=== PATIENT | male | born 1985 | race Caucasian/White ===

== ENCOUNTER → 2016-11-18 | Outpatient (REF) ==
--- NOTE | 2016-11-18 14:23 | REP ---
LEFT KNEE SERIES: Five views. HISTORY: Degenerative disease. FINDINGS: Comparison left knee radiographs are from June 20, 2010. The left knee radiographs demonstrate normal bone joints and soft tissues. Joint spaces are preserved. No evidence of arthropathy. No bony destructive lesions seen. IMPRESSION: Negative left knee radiographs. Signed by Cedric Warren MD 11/18/2016 05:03 P
--- NOTE | 2016-11-18 14:24 | REP ---
CERVICAL SPINE SERIES: Three views. HISTORY: Degenerative disc disease. FINDINGS: Open mouth odontoid and AP views are unremarkable. Lateral view shows preserved vertebral body heights. There is straightening of the normal cervical lordosis. Alignment is otherwise normal. Disc spaces are maintained. Prevertebral soft tissues are not widened. IMPRESSION: Straightening, otherwise negative cervical spine radiographs. Signed by Cedric Warren MD 11/18/2016 05:03 P
== END ==
LOC: M SMT 11:56
PROVIDERS: ATTEND Internal Medicine
DX: M50.93 Cervical disc disorder, unspecified, cervicothoracic region (principal)

== ENCOUNTER → 2020-05-22 | Outpatient (CLI) | payer OTHER ==
--- NOTE | 2020-05-23 09:58 | ECWPNPC ---
PATIENT NAME: KINDRA CRUZ : 1985 GENDER: MALE VISIT DATE: 05/22/2020 DISCHARGE DATE: 05/22/20 1406 VISIT LOCKED DATE TIME: PHYSICIAN: EVAN BROWN RESOURCE: EVAN BROWN REASON FOR APPOINTMENT 1. NECK PAIN HISTORY OF PRESENT ILLNESS GENERAL: -35-YEAR-OLD MALE IN FOR NEW PATIENT CONSULT. PATIENT HAS COMPLAINTS OF NECK PAIN. PATIENT HAS BEEN ON MULTIPLE MEDICATIONS IN THE PAST ALL OF WHICH HE SAYS HAS NOT HELPED HIS PAIN. HE FURTHER STATES HE HAS HAD INJECTIONS IN THE PAST AND THAT HAS BEEN INEFFECTIVE WELL. HE RATES HIS PAIN CURRENTLY AT AN 8 OUT OF 10 AND DESCRIBES IT ACHING, BURNING, SHARP, STABBING, THROBBING, AND SHOOTING. FALL RISK SCREENING: SCREENING :ONE FALL WITHOUT INJURY IN THE PAST YEAR PAIN SCREENING: PATIENT HAS A COMPLAINT OF ACUTE OR CHRONIC PAIN :YES LOCATION OF PAIN:NECK, LEFT SHOULDER, RIGHT SHOULDER, BOTH SHOULDERS, UPPER BACK, LEFT HIP, RIGHT HIP, KNEES INTENSITY OF PAIN (SCALE OF 1 TO 10):8 WHAT DOES YOUR PAIN FEEL LIKE:ACHING, BURNING, SHARP, STABBING, THROBBING, SHOOTING DURATION:CONTINOUS, CONSTANT PAIN IS INCREASED BY:ACTIVITIES PAIN IS DECREASED BY:USE OF PAIN MEDICATIONS TREATMENT/MEDICATIONS USED TO MANAGE PAIN:NSAIDS LEVEL OF RELIEF FROM PAIN TREATMENTS IN THE PAST:50% PAIN HAS INTERFERED WITH THE FOLLOWING:BATHING/DRESSING, WALKING ABILITY, HOUSEWORK, SLEEP, TRANSPORTATION, TOILETING NURSING NOTE: - - -. PAIN CENTER INTAKE QUESTIONS: DO YOU HAVE A HISTORY OF MRSA? :NO DO YOU TAKE A BLOOD THINNERS? :NO DO YOU HAVE ANY BLEEDING DISORDERS? :NO ANY NEW NUMBNESS OR WEAKNESS IN YOUR LEGS OR ARMS? :YES BILAT ARMS AND LEGS ANY PACEMAKER,DEFIBRILLATOR, OR DORSAL COLUMN STIMULATOR? :NO DO YOU HAVE ANY RASHES OR OPEN SORES? :NO ARE YOU ALLERGIC TO IV DYE? :NO ARE YOU DIABETIC? :NO ANY NEW PROBLEMS WITH YOUR MEDICATIONS? :NO HAVE YOU RECEIVED A VACCINE IN THE PAST 30 DAYS? :NO DO YOU PLAN TO RECEIVE A VACCINE IN THE NEXT 21 DAYS? :YES IF SO WHAT VACCINE AND WHEN? FLU VACCINE DO YOU NEED ANY PRESCRIPTION? :NO DO YOU TAKE ANY IMMUNOSUPPRESSIVE MEDICATIONS? :NO CURRENT MEDICATIONS TAKING MAY USE MEDICAL MARIJUANA TAKING OMEPRAZOLE 20 MG CAPSULE DELAYED RELEASE 1 CAPSULE 30 MINUTES BEFORE MORNING MEAL ORALLY TWICE A DAY TAKING ALBUTEROL SULFATE HFA 108 (90 BASE) MCG/ACT AEROSOL SOLUTION 2 PUFFS NEEDED INHALATION EVERY 4 HRS FOR COUGH OR WHEEZE TAKING IBUPROFEN 800 MG TABLET 1 TABLET WITH FOOD OR MILK NEEDED ORALLY THREE TIMES A DAY TAKING MONTELUKAST SODIUM 10 MG TABLET 1 TABLET ORALLY ONCE A DAY TAKING CETIRIZINE HCL 10 MG TABLET 1 TABLET ORALLY ONCE A DAY TAKING GABAPENTIN 800 MG TABLET 1 TABLET ORALLY 4 TIMES A DAY TAKING MAY HAVE BACLOFEN TABLET 20 MG ORAL 4 TIMES A DAY TAKING MAY HAVE BOTOX MEDICATION LIST REVIEWED AND RECONCILED WITH THE PATIENT PAST MEDICAL HISTORY ALLERGIC RHINITIS/SEASONAL ALLERGIES ASTHMA/REACTIVE AIRWAY HYPERLIPIDEMIA IRRITIBLE BOWEL SYNDROME MIGRAINE 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 ANXIETY PTSD DEPRESSION GASTRITIS/GERD NECK AND BACK PAIN TOBACCO USE HYPERTENSION OBESITY CLASS 2 GALLSTONES CHRONIC HIP PAIN BILATERAL JOINT PAIN MUSCLE PAIN RIGHT SHOULDER PAIN SECONDARY TO ROTATOR CUFF INJURY ALLERGIES ZIPRASIDONE HCL: ORAL MANDIBULAR CERVICAL DISORDER PERTUSSIS VACCINES: UNKNOWN SURGICAL HISTORY NASAL CAUTERIZATION REPAIR LEFT KNEE TORN MENISCUS FAMILY HISTORY FATHER: UNKNOWN MOTHER: ALIVE SOCIAL HISTORY GENERAL: TOBACCO USE ARE YOU A:CURRENT SMOKER ARE YOU INTERESTED IN QUITTING?THINKING ABOUT QUITTING COUNSELED THE PATIENT ON SMOKING CESSATION, EDUCATION [id number]/21/2020 HOW MANY CIGARETTES A DAY DO YOU SMOKE?5 OR LESS LATEX QUESTIONNAIRE LATEX ALLERGY : HAVE YOU EVER DEVELOPED ANY TYPE OF REACTION AFTER HANDLING LATEX PRODUCTS SUCH RUBBER GLOVES, CONDOMS, DIAPHRAGMS, BALLOONS, SOCKS, OR UNDERWEAR?NO LATEX ALLERGY : HAVE YOU EVER DEVELOPED ANY TYPE OF REACTION DURING OR AFTER DENTAL APPOINTMENT, VAGINAL/RECTAL EXAMINATION, SURGICAL PROCEDURE, OR ANY OTHER EXPOSURE?NO LATEX RISK : HAVE YOU EVER HAD ANY DIFFICULTY BREATHING OR HIVES AFTER EATING OR HANDLING ANY FRUITS, OR VEGETABLES; SUCH KIWI, BANANAS, STONE FRUITS, OR CHESTNUTSNO LATEX RISK : DO YOU HAVE A PREVIOUS PERSONAL HISTORY OF MORE THAN NINE SURGERIES, SPINA BIFIDA, OR REPEATED CATHERIZATIONS? NO LATEX RISK : ARE YOU FREQUENTLY EXPOSED TO LATEX PRODUCTS IN YOUR OCCUPATION?NO DATE ASKED : 05/22/2020 ALCOHOL SCREENING DID YOU HAVE A DRINK CONTAINING ALCOHOL IN THE PAST YEAR?NO POINTS0 INTERPRETATIONNEGATIVE LANGUAGE LANGUAGES SPOKEN:AF[place] MARITAL STATUS: SINGLE. PAIN CLINIC PFS, CLERGY, PUBLIC HEALTH REFERRALS HAS THE PATIENT BEEN EDUCATED REGARDING HIS/HER PLAN OF CARE?YES HAS THE PATIENT BEEN EDUCATED REGARDING PAIN, THE RISK FOR PAIN, THE IMPORTANCE OF EFFECTIVE PAIN MANAGEMENT, AND THE PAIN ASSESSMENT PROCESS?YES ADVANCE DIRECTIVE ADVANCE DIRECTIVE DISCUSSED WITH PATIENT:YES DECLINED, DECLINED PAPERWORK HOSPITALIZATION/MAJOR DIAGNOSTIC PROCEDURE DENIES PAST HOSPITALIZATION REVIEW OF SYSTEMS CONSTITUTIONAL: ANY RECENT FEVER NO . CHILLS NO . WEIGHT CHANGE OF UNKNOWN REASONS NO . GASTROENTEROLOGY: NEW UNEXPLAINABLE CHANGES IN BOWEL CONTROL NO . CONSTIPATION NO . GENITOURINARY: ANY NEW CHANGE IN BLADDER CONTROL? NO . NEUROLOGY: NEW ONSET DIZZINESS OR NEUROLOGICAL CHANGES NOT MENTIONED NO . NEW NUMBNESS OR PAIN PATTERNS NOT MENTIONED AND PERTINENT TO TODAY'S VISIT NO . CARDIOLOGY: NEW CHEST PRESSURE NO . NEW CHEST PAIN NO . RESPIRATORY: UNEXPLAINABLE COUGH NO . NEW SHORTNESS OF BREATH NO . VITAL SIGNS WT 203 LBS, HT 68 IN, BMI 30.86 INDEX, BP 152/82 MM HG, HR 92 /MIN, RR 16 /MIN, TEMP 98.4 F, OXYGEN SAT % 100, SAFE IN ENV? (Y/N) Y, REVIEWED BY: EM. EXAMINATION GENERAL EXAMINATION: GENERALNO ACUTE DISTRESS, WELL NOURISHED AND HYDRATED. PSYCHAPPROPRIATE MOOD AND AFFECT . NECK:POINT TENDER BILATERAL CERVICAL SPINE, SURROUNDING SKIN SHOWS NO ERYTHEMA, ECCHYMOSIS, INCREASED WARMTH, AND/OR SKIN ERUPTIONS NOTED. PATIENT DOES ENDORSE INCREASED PAIN WITH FACET LOADING. . LUNGS:CLEAR TO AUSCULTATION BILATERALLY, NO WHEEZES, RHONCHI, RALES. HEART:NO MURMURS, REGULAR RATE AND RHYTHM. ASSESSMENTS CERVICALGIA - M54.2 (PRIMARY) TREATMENT CERVICALGIA STOP IBUPROFEN TABLET, 800 MG, 1 TABLET WITH FOOD OR MILK NEEDED, ORALLY, THREE TIMES A DAY START DICLOFENAC SODIUM TABLET DELAYED RELEASE, 50 MG, 1 TABLET, ORALLY, THREE TIMES DAILY, 30 DAY(S), 90 [facility] MRI SPINE, CERVICAL WITHOUT [id number] CLINICAL NOTES: 35-YEAR-OLD MALE IN FOR INITIAL PAIN CONSULT. GIVEN PRESENTING SYMPTOMS AND RESULTS OF PHYSICAL EXAMINATION RECOMMEND UPDATED MRI AND STARTING DICLOFENAC SODIUM 3 TIMES A DAY WITH FOLLOW-UP STATUS POST IMAGING. PATIENT HAS EXPRESSED UNDERSTANDING OF AND WAS IN AGREEMENT WITH TREATMENT PLAN. GIVEN TIME TO ASK QUESTIONS AND EXPRESS CONCERNS. PREVENTIVE MEDICINE PAIN CLINIC TEACHING: THE PATIENT HAS BEEN EDUCATED REGARDING PAIN, THE RISK FOR PAIN, THE IMPORTANCE OF EFFECTIVE PAIN MANAGEMENT, AND THE PAIN ASSESSMENT PROCESS. : DISCUSSED CARE PLAN WITH PATIENT, PATIENT VERBALIZES UNDERSTANDING. MEDICAL INFORMATION ENTERED FROM REFERRING PROVIDER'S RECORDS. Cherri MORRIS RN. DISPOSITION & COMMUNICATION FOLLOW UP POST IMAGING (REASON: CERVICALGIA, C-SPINE MRI) ELECTRONICALLY SIGNED BY SHANI TILLMAN ON 05/23/2020 AT 09:00 AM EDT DISCLAIMER : THIS IS A VISIT SUMMARY [facility]ACTED FROM [facility]. IT IS NOT A COPY OF THE [facility] PROGRESS NOTE. DIONE
== END ==
LOC: M PAIN 13:00
PROVIDERS: ATTEND Family Medicine
DX: M54.2 Cervicalgia (principal); J45.909 Unspecified asthma, uncomplicated; E78.5 Hyperlipidemia, unspecified; K58.9 Irritable bowel syndrome, unspecified; G43.909 Migraine, unspecified, not intractable, without status migrainosus; F41.9 Anxiety disorder, unspecified; F43.10 Post-traumatic stress disorder, unspecified; F32.9 Major depressive disorder, single episode, unspecified; K21.9 Gastro-esophageal reflux disease without esophagitis; I10 Essential (primary) hypertension; E66.9 Obesity, unspecified; F17.210 Nicotine dependence, cigarettes, uncomplicated; Z88.8 Allergy status to other drugs, medicaments and biological substances; Z88.7 Allergy status to serum and vaccine; Z68.30 Body mass index [BMI] 30.0-30.9, adult; Z79.899 Other long term (current) drug therapy

== ENCOUNTER → 2020-07-11 | Outpatient (CLI) | payer OTHER ==
--- NOTE | 2020-07-13 04:19 | ECWPNPC ---
PATIENT NAME: KINDRA CRUZ : 1985 GENDER: MALE VISIT DATE: 07/11/2020 DISCHARGE DATE: 07/11/20 1511 VISIT LOCKED DATE TIME: PHYSICIAN: EVAN BROWN RESOURCE: EVAN BROWN REASON FOR APPOINTMENT 1. MRI REVIEW HISTORY OF PRESENT ILLNESS DEPRESSION SCREENING: PHQ-2 (2015 EDITION) LITTLE INTEREST OR PLEASURE IN DOING THINGS?NOT AT ALL FEELING DOWN, DEPRESSED, OR HOPELESS?NOT AT ALL TOTAL SCORE0 35-YEAR-OLD MALE IN FOR CHRONIC PAIN FOLLOW-UP. PATIENT HAD RECENT CERVICAL MRI WHICH WILL BE REVIEWED WITH PATIENT TODAY. HE RATES HIS PAIN CURRENTLY AT A 7 OUT OF 10 AND DESCRIBES IT ACHING, STABBING, THROBBING, AND SHOOTING. PATIENT WAS STARTED ON DICLOFENAC AT LAST CLINIC VISIT AND HE ADMITS TODAY THAT THIS HAS BEEN UNHELPFUL. GENERAL: -. FALL RISK SCREENING: SCREENING :ONE FALL WITHOUT INJURY IN THE PAST YEAR PAIN SCREENING: PATIENT HAS A COMPLAINT OF ACUTE OR CHRONIC PAIN :YES LOCATION OF PAIN:NECK, LEFT SHOULDER, RIGHT SHOULDER, BOTH SHOULDERS, UPPER BACK, MID BACK, LOW BACK, LEFT HIP, RIGHT HIP INTENSITY OF PAIN (SCALE OF 1 TO 10):7 WHAT DOES YOUR PAIN FEEL LIKE:ACHING, STABBING, THROBBING, SHOOTING DURATION:CONTINOUS, CONSTANT PAIN IS INCREASED BY:ACTIVITIES PAIN IS DECREASED BY:USE OF PAIN MEDICATIONS TREATMENT/MEDICATIONS USED TO MANAGE PAIN:OPIOIDS LEVEL OF RELIEF FROM PAIN TREATMENTS IN THE PAST:0% PAIN HAS INTERFERED WITH THE FOLLOWING:BATHING/DRESSING, WALKING ABILITY, HOUSEWORK, SLEEP, TRANSPORTATION, TOILETING NURSING NOTE: -. PAIN CENTER INTAKE QUESTIONS: DO YOU HAVE A HISTORY OF MRSA? :NO DO YOU TAKE A BLOOD THINNERS? :NO DO YOU HAVE ANY BLEEDING DISORDERS? :NO ANY NEW NUMBNESS OR WEAKNESS IN YOUR LEGS OR ARMS? :NO ANY PACEMAKER,DEFIBRILLATOR, OR DORSAL COLUMN STIMULATOR? :NO DO YOU HAVE ANY RASHES OR OPEN SORES? :NO ARE YOU ALLERGIC TO IV DYE? :NO ARE YOU DIABETIC? :NO ANY NEW PROBLEMS WITH YOUR MEDICATIONS? :NO HAVE YOU RECEIVED A VACCINE IN THE PAST 30 DAYS? :YES IF SO WHAT VACCINE AND WHEN? FLU VACCINE 06/2020 DO YOU PLAN TO RECEIVE A VACCINE IN THE NEXT 21 DAYS? :NO DO YOU NEED ANY PRESCRIPTION? :NO DO YOU TAKE ANY IMMUNOSUPPRESSIVE MEDICATIONS? :NO IS THERE A CHANCE YOU COULD BE ? :NO ARE YOU BREAST FEEDING? :NO CURRENT MEDICATIONS TAKING MAY USE MEDICAL MARIJUANA TAKING OMEPRAZOLE 20 MG CAPSULE DELAYED RELEASE 1 CAPSULE 30 MINUTES BEFORE MORNING MEAL ORALLY TWICE A DAY TAKING ALBUTEROL SULFATE HFA 108 (90 BASE) MCG/ACT AEROSOL SOLUTION 2 PUFFS NEEDED INHALATION EVERY 4 HRS FOR COUGH OR WHEEZE TAKING MONTELUKAST SODIUM 10 MG TABLET 1 TABLET ORALLY ONCE A DAY TAKING CETIRIZINE HCL 10 MG TABLET 1 TABLET ORALLY ONCE A DAY TAKING GABAPENTIN 800 MG TABLET 1 TABLET ORALLY 4 TIMES A DAY TAKING MAY HAVE BACLOFEN TABLET 20 MG ORAL 4 TIMES A DAY TAKING MAY HAVE BOTOX TAKING DICLOFENAC SODIUM 50 MG TABLET DELAYED RELEASE 1 TABLET ORALLY THREE TIMES DAILY MEDICATION LIST REVIEWED AND RECONCILED WITH THE PATIENT PAST MEDICAL HISTORY ALLERGIC RHINITIS/SEASONAL ALLERGIES ASTHMA/REACTIVE AIRWAY HYPERLIPIDEMIA IRRITIBLE BOWEL SYNDROME MIGRAINE 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 ANXIETY PTSD DEPRESSION GASTRITIS/GERD NECK AND BACK PAIN TOBACCO USE HYPERTENSION OBESITY CLASS 2 GALLSTONES CHRONIC HIP PAIN BILATERAL JOINT PAIN MUSCLE PAIN RIGHT SHOULDER PAIN SECONDARY TO ROTATOR CUFF INJURY ALLERGIES ZIPRASIDONE HCL: ORAL MANDIBULAR CERVICAL DISORDER PERTUSSIS VACCINES: UNKNOWN SURGICAL HISTORY NASAL CAUTERIZATION REPAIR LEFT KNEE TORN MENISCUS FAMILY HISTORY FATHER: UNKNOWN MOTHER: ALIVE SOCIAL HISTORY GENERAL: TOBACCO USE ARE YOU A:CURRENT SMOKER ARE YOU INTERESTED IN QUITTING?THINKING ABOUT QUITTING COUNSELED THE PATIENT ON SMOKING CESSATION, EDUCATION [id number]/10/2020 HOW MANY CIGARETTES A DAY DO YOU SMOKE?5 OR LESS LATEX QUESTIONNAIRE LATEX ALLERGY : HAVE YOU EVER DEVELOPED ANY TYPE OF REACTION AFTER HANDLING LATEX PRODUCTS SUCH RUBBER GLOVES, CONDOMS, DIAPHRAGMS, BALLOONS, SOCKS, OR UNDERWEAR?NO LATEX ALLERGY : HAVE YOU EVER DEVELOPED ANY TYPE OF REACTION DURING OR AFTER DENTAL APPOINTMENT, VAGINAL/RECTAL EXAMINATION, SURGICAL PROCEDURE, OR ANY OTHER EXPOSURE?NO LATEX RISK : HAVE YOU EVER HAD ANY DIFFICULTY BREATHING OR HIVES AFTER EATING OR HANDLING ANY FRUITS, OR VEGETABLES; SUCH KIWI, BANANAS, STONE FRUITS, OR CHESTNUTSNO LATEX RISK : DO YOU HAVE A PREVIOUS PERSONAL HISTORY OF MORE THAN NINE SURGERIES, SPINA BIFIDA, OR REPEATED CATHERIZATIONS? NO LATEX RISK : ARE YOU FREQUENTLY EXPOSED TO LATEX PRODUCTS IN YOUR OCCUPATION?NO DATE ASKED : 05/22/2020 ALCOHOL SCREENING DID YOU HAVE A DRINK CONTAINING ALCOHOL IN THE PAST YEAR?NO POINTS0 INTERPRETATIONNEGATIVE LANGUAGE LANGUAGES SPOKEN:[place]EL[place] MARITAL STATUS: SINGLE. PAIN CLINIC PFS, CLERGY, PUBLIC HEALTH REFERRALS HAS THE PATIENT BEEN EDUCATED REGARDING HIS/HER PLAN OF CARE?YES HAS THE PATIENT BEEN EDUCATED REGARDING PAIN, THE RISK FOR PAIN, THE IMPORTANCE OF EFFECTIVE PAIN MANAGEMENT, AND THE PAIN ASSESSMENT PROCESS?YES ADVANCE DIRECTIVE ADVANCE DIRECTIVE DISCUSSED WITH PATIENT:YES DECLINED, DECLINED PAPERWORK HOSPITALIZATION/MAJOR DIAGNOSTIC PROCEDURE NO HOSPITALIZATION HISTORY. REVIEW OF SYSTEMS CONSTITUTIONAL: ANY RECENT FEVER NO . CHILLS NO . WEIGHT CHANGE OF UNKNOWN REASONS NO . GASTROENTEROLOGY: NEW UNEXPLAINABLE CHANGES IN BOWEL CONTROL NO . CONSTIPATION NO . GENITOURINARY: ANY NEW CHANGE IN BLADDER CONTROL? NO . NEUROLOGY: NEW ONSET DIZZINESS OR NEUROLOGICAL CHANGES NOT MENTIONED NO . NEW NUMBNESS OR PAIN PATTERNS NOT MENTIONED AND PERTINENT TO TODAY'S VISIT NO . CARDIOLOGY: NEW CHEST PRESSURE NO . NEW CHEST PAIN NO . RESPIRATORY: UNEXPLAINABLE COUGH NO . NEW SHORTNESS OF BREATH NO . VITAL SIGNS WT 199.6 LBS, HT 68 IN, BMI 30.35 INDEX, BP 180/86 MM HG, HR 116 /MIN, RR 18 /MIN, TEMP 97.3 F, OXYGEN SAT % 99%, SAFE IN ENV? (Y/N) Y, NA INITIALS SC 14:20, REVIEWED BY: EM. EXAMINATION GENERAL EXAMINATION: GENERALNO ACUTE DISTRESS, WELL NOURISHED AND HYDRATED. PSYCHAPPROPRIATE MOOD AND AFFECT . LUNGS:CLEAR TO AUSCULTATION BILATERALLY, NO WHEEZES, RHONCHI, RALES. HEART:NO MURMURS, REGULAR RATE AND RHYTHM. ASSESSMENTS CERVICALGIA - M54.2 (PRIMARY) TREATMENT CERVICALGIA NOTES: 35-YEAR-OLD MALE IN FOR CHRONIC PAIN FOLLOW-UP. DISCUSSED AT LENGTH MEDICATION OPTIONS TO TREAT PATIENT'S PAIN. 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 PATIENT DID BECOME FRUSTRATED WITH THIS. OTHER MEDICATIONS DISCUSSED WERE INCREASING PATIENT CYMBALTA, DICLOFENAC, AND/OR INJECTION THERAPY AND PATIENT DECLINED ALL THESE OPTIONS. GIVEN PRESENTING SYMPTOMS AND THE FACT THAT HE SHE WAS INTERESTED IN REFERRAL TO OTHER PAIN PROVIDERS RECOMMEND REFERRAL TO DR. VALENCIA'S OFFICE FURTHER EVALUATION. PATIENT HAS EXPRESSED UNDERSTANDING OF AND WAS IN AGREEMENT WITH TREATMENT PLAN. GIVEN TIME TO ASK QUESTIONS AND EXPRESS CONCERNS. REFERRAL TO:[facility] ([facility]PAIN MEDICINE REASON:PATIENT REQUESTS SECOND OPINION DISPOSITION & COMMUNICATION FOLLOW UP REASON: PATIENT REFERRED TO DR. PEREZ OFFICE NO FOLLOW-UP NEEDED ELECTRONICALLY SIGNED BY SHANI TILLMAN ON 07/12/2020 AT 12:58 PM EST DISCLAIMER : THIS IS A VISIT SUMMARY EXTRACTED FROM THE [facility] CHART. IT IS NOT A COPY OF THE [employer] [facility] PROGRESS NOTE. DIONE
== END ==
LOC: M PAIN 14:15
PROVIDERS: ATTEND Family Medicine
DX: M54.2 Cervicalgia (principal); G89.29 Other chronic pain; J45.909 Unspecified asthma, uncomplicated; G43.909 Migraine, unspecified, not intractable, without status migrainosus; K21.9 Gastro-esophageal reflux disease without esophagitis; F17.210 Nicotine dependence, cigarettes, uncomplicated; Z86.59 Personal history of other mental and behavioral disorders; Z88.7 Allergy status to serum and vaccine; Z88.8 Allergy status to other drugs, medicaments and biological substances; Z79.899 Other long term (current) drug therapy